=== PATIENT | female | born 1940 | race Caucasian/White ===

== ENCOUNTER 2021-01-05 01:54 | Outpatient (CLI) | payer MEDICARE, BC, SELFPAY ==
--- NOTE | 2021-01-05 06:30 | DI.US_ITS ---
EXAM: US HERNIA CLINICAL HISTORY: worsening pain/bulge lower abd,HERNIA,K46.9. TECHNIQUE: Ultrasound was performed using standard protocol. COMPARISON: No exams were available for comparison FINDINGS: Sonographic assessment utilizing grayscale and color Doppler imaging was performed and targeted to th e area of clinical concern. No abdominal wall hernia, fluid collection or mass is identified. IMPRESSION: Abdominal wall hernia is not visualized on this examination. DATA REPOSITORY:
== END 2021-01-05 02:14 ==
PROVIDERS: PCP Family Medicine; Visit Provider Family Medicine
DX: R10.32 Left lower quadrant pain (principal); R19.04 Left lower quadrant abdominal swelling, mass and lump
CPT/HCPCS: 76857

== ENCOUNTER 2021-03-26 11:12 | Outpatient (CLI) | payer MEDICARE, BC, SELFPAY ==
--- NOTE | 2021-03-26 14:18 | DI.RAD_ITS ---
Exam(s) XR HEEL RT OS CALCIS EXAM: XR HEEL RT OS CALCIS CLINICAL HISTORY: foot pain, M79.671. TECHNIQUE: 2D digital imaging was performed. COMPARISON: CR XR FOOT RT COMPLETE from 03/26/2021 FINDINGS: Two dedicated views of the calcaneus including a lateral view and a Tanner axial view reveal no eviden ce of calcaneus fracture nor obvious evidence of osteomyelitis. There is no radiopaque foreign body. No obvious osseous tarsal coalition. Incidentally noted is vascular calcification in the posterior tibial artery which extends into the plantar arteries distal to the medial malleolus. IMPRESSION: DATA REPOSITORY: RADIATION DOSE DELIVERED:
--- NOTE | 2021-03-26 14:18 | DI.RAD_ITS ---
Exam(s) XR FOOT RT COMPLETE EXAM: XR FOOT RT COMPLETE CLINICAL HISTORY: Rt foot pain, M79.671. TECHNIQUE: 2D digital imaging was performed. COMPARISON: No exams were available for comparison FINDINGS: There is no evidence of acute fracture nor diastasis of the Lisfranc joint. There is prominent hallu x valgus noted. Mild degenerative changes in the metatarsophalangeal joint of the great toe. Calcif ication in the posterior tibial and plantar arteries noted. No osseous lesions nor erosions. No radiographic evidence of osteomyelitis. IMPRESSION: DATA REPOSITORY: RADIATION DOSE DELIVERED:
== END 2021-03-26 11:32 ==
PROVIDERS: PCP Family Medicine; Visit Provider Physician Assistant
DX: M79.671 Pain in right foot (principal); M20.11 Hallux valgus (acquired), right foot; M19.071 Primary osteoarthritis, right ankle and foot
CPT/HCPCS: 73630; 73650

== ENCOUNTER 2022-04-08 13:03 | Outpatient (CLI) | payer MEDICARE, BC, SELFPAY ==
[2022-04-08 13:54] LABS: Anion Gap 10.4 mmol/L (3-11); BUN 17 mg/dL (7-18); CO2 25.6 mmol/L (21.0-32.0); CREATININE 1.1 mg/dL (0.55-1.02); Calcium 8.3 mg/dL (8.5-10.1); Calculated LDL 99 mg/dL (<100); Chloride 104 mmol/L (98-107); Cholesterol 175 mg/dL (<200); Estimated GFR 47.43 (mL/min/1.73m2); Glucose 94 mg/dL (74-106); HDL Cholesterol 64 mg/dL (40-60); Potassium 4.9 mmol/L (3.5-5.1); Sodium 140 mmol/L (136-145); Triglyceride 60 mg/dL (<150)
== END 2022-04-08 13:04 | disposition home or self-care (01) ==
LOC: LBO 13:35
PROVIDERS: PCP Family Medicine; Visit Provider Family Medicine
DX: E78.5 Hyperlipidemia, unspecified (principal); E87.1 Hypo-osmolality and hyponatremia
CPT/HCPCS: 36415; 80048; 80061

== ENCOUNTER → 2022-04-21 15:59 | Outpatient (CLI) | payer MEDICARE, BC, SELFPAY ==
--- NOTE | 2022-04-21 16:35 | DI.RAD_ITS ---
Exam(s) XR LUMBAR SPINE COMPLETE EXAM: XR LUMBAR SPINE COMPLETE CLINICAL HISTORY: chronic back pain, idiopathic scoliosis-M41.20, osteoporosis-M81.0. TECHNIQUE: 2D digital imaging was performed of the lumbar spine. Five images were obtained. AP, la teral, right oblique, left oblique and L5-S1 spot views were obtained. COMPARISON: No exams were available for comparison FINDINGS: BONES: No fracture or destructive lesion. There are endplate osteophytes throughout the lumbar spine. Facet arthropathy is seen from L4-5 through L5-S1. The bones are osteopenic. The patient has a rig ht total hip replacement. DISKS: Multilevel disc space narrowing is present. ALIGNMENT: There is a right convex lumbar scoliosis. No spondylolysis or spondylolisthesis. SOFT TISSUE: Normal. IMPRESSION: Moderate degenerative changes in the lumbar spine. Right convex thoracolumbar scoliosis. DATA REPOSITORY: RADIATION DOSE DELIVERED:
== END ==
PROVIDERS: PCP Family Medicine; Visit Provider Family Medicine
DX: M47.816 Spondylosis without myelopathy or radiculopathy, lumbar region (principal); M41.25 Other idiopathic scoliosis, thoracolumbar region; M81.0 Age-related osteoporosis without current pathological fracture
CPT/HCPCS: 72110

== ENCOUNTER → 2022-06-09 20:07 | Outpatient (CLI) | payer MEDICARE, BC, SELFPAY ==
--- NOTE | 2022-06-09 14:15 | DI.RAD_ITS ---
Exam(s) XR SACRUM COCCYX EXAM: XR SACRUM COCCYX CLINICAL HISTORY: FALL WITH INJURY--W19.XXXA, SACROCOCCYGEAL DISORDERS--M53.3 TECHNIQUE: COMPARISON: No exams were available for comparison FINDINGS: Three views were obtained. This sacrum is partially obscured by overlying dense fecal material. No gross fracture identified. IMPRESSION: RADIATION DOSE DELIVERED: Total DLP
== END ==
PROVIDERS: PCP Family Medicine; Visit Provider Nurse Practitioner Family
DX: M53.3 Sacrococcygeal disorders, not elsewhere classified (principal); W19.XXXA Unspecified fall, initial encounter
CPT/HCPCS: 72220

== ENCOUNTER 2023-04-14 01:13 | Outpatient (CLI) | payer MEDICARE, BC, SELFPAY ==
[2023-04-14 13:02] LABS: CREATININE 1.1 mg/dL (0.55-1.02); Estimated GFR 49.55 (mL/min/1.73m2); Potassium 4.5 mmol/L (3.5-5.1)
[2023-04-15 11:15] LABS: Hepatitis C Ab w Rflx HCV PCR Negative (Negative)
[2023-04-15 11:19] LABS: Hep B Core Antibody Negative (Negative)
== END 2023-04-14 01:14 | disposition home or self-care (01) ==
LOC: LOS 01:13
PROVIDERS: PCP Family Medicine; Visit Provider Family Medicine
DX: I10 Essential (primary) hypertension (principal); Z11.59 Encounter for screening for other viral diseases
CPT/HCPCS: 36415; 86704; 86803; 82565; 84132

== ENCOUNTER 2023-07-27 18:51 | Emergency (ER) | payer MEDICARE, BC, SELFPAY ==
[2023-07-27] VITALS (37 sets, daily range): BP systolic 101–185; BP diastolic 49–126; PULSE 59–79; RESP 12–27; TEMP 37.9; O2SAT 92–97
--- NOTE | 2023-07-27 19:15 | RT.EKG_ITS ---
APPROVED REPORT Exam: Resting ECG Reason for Exam: short of breath Patient Location: E HR:70 bpm ECG Measurements Heart Rate 70 AXIS WV 160 P 64 QRSd 133 QRS -56 QT 440 T 74 QTc 474 Conclusion Sinus rhythm...normal P axis, V-rate 60- 99 Probable left atrial enlargement...P >50mS, <-0.10mV V1 Left bundle branch block...QRSd>120, broad/notched R Normal sinus rhythm at a rate of 70 with left bundle branch block. Not meeting Sgarbossa criteria. Not meeting modified Bowles criteria for ischemia.no prior for comparison. No acute injury pattern.
--- NOTE | 2023-07-27 19:15 | DI.RAD_ITS ---
Exam(s) XR PORTABLE CHEST AP EXAM: XR PORTABLE CHEST AP CLINICAL HISTORY: cough, weakness, covid. TECHNIQUE: 2D digital imaging was performed. COMPARISON: CR CHEST 2 VIEWS PA,LAT from 11/18/2012 CR XR LUMBAR SPINE COMPLETE from 04/21/2022 FINDINGS: Single AP portable view. Heart size is upper normal. The mediastinum is not widened. There is a round nodular density in the left lung base region-left lower lobe. This measures approxi mately 5 cm. Was not previously present 2012. Right shoulder prosthesis. IMPRESSION: 5 cm round density in the left lower lobe which was not evident in 2013. Cannot assume that this is tenting of the diaphragm.Follow-up CT scan recommended. First read by [facility]. Report called by myself to ER physician 07/28/2023 at 8 34 am DATA REPOSITORY: RADIATION DOSE DELIVERED:
[2023-07-27] MEDS: Lactated Ringers 1,000 ML 200 ML IV (19:55)
[2023-07-27 20:23] LABS: Abs Immature Grans 0.01 10^3/uL (0.0-0.06); Absolute Basophil Count 0.04 10^3/uL (0.0-0.2); Absolute Eosinophil Count 0.02 10^3/uL (0.0-0.7); Absolute Monocyte Count 0.54 10^3/uL (0.1-0.8); Basophils % 0.9; Eosinophils % 0.4; HCT 37.5 % (36.0-46.0); HGB 12.1 g/dL (11.2-15.7); Immature Grans % 0.2; MCH 29.4 pg (27.0-33.0); MCHC 32.3 % (32.0-36.0); MCV 91 fL (80-95); MPV 10.7 fL (8.0-11.0); Neutrophils % 66.5; Platelet Count 230 10^3/uL (130-400); RBC 4.11 10^6/uL (3.93-5.22); RDW 13.4 % (11.7-14.6); WBC 4.51 10^3/uL (4.4-10.8)
--- NOTE | 2023-07-27 20:34 | W.ED.GENAD ---
Discharge Plan Disposition Patient Disposition: Home Discharge Details Clinical Impression: COVID-19 Primary Care Provider: Shayan Lee ED Provider: [place] Marina Home Meds and New Rx's Prescriptions: New prednisone 20 mg tablet 40 mg PO ONCE Qty: 9 0RF Continued calcium [calcium citrate] PO simvastatin 10 mg tablet 10 mg PO HS Qty: 90 4RF Rx Instructions: 1 PILL HS [id number] oil-D3 560 mg-1,680 mg -1,000 unit/5mL liquid PO albuterol sulfate [ProAir HFA] 90 mcg/actuation HFA aerosol inhaler 2 puff Inhalation Q6H PRN Qty: 1 4RF ondansetron 4 mg tablet,disintegrating 4 mg PO Q8H PRN (Reason: nausea and vomiting) Qty: 20 0RF oxycodone 30 mg tablet 30 mg PO Q3H PRN (Reason: pain) Rx Instructions: per pain clinic - 10 tablets daily. epinephrine 0.3 mg/0.3 mL auto-injector 0.3 mg IM DIRECTED Qty: 2 0RF amoxicillin 500 mg capsule 2,000 mg PO DIRECTED Qty: 4 2RF Rx Instructions: 4 TAB 1 HR BEFORE DENTAL WORK. lisinopril 5 mg tablet 7.5 mg PO DAILY Qty: 90 4RF Rx Instructions: dose increase 06/29/23 multivitamin [Daily Multi-Vitamin] 1 EACH tablet 1 ea PO DAILY Rx Instructions: USANA coenzyme Q10 [CoQ-10] 100 MG capsule 200 mg PO DAILY sennosides-docusate sodium [Senna Plus] 1 EACH tablet 2 tab-cap PO BID PRN naloxone [Narcan] 4 MG spray,non-aerosol 4 mg NS as directed 1 Days Qty: 2 0RF Rx Instructions: instill 1 spray into 1 nostril for opioid overdose-may repeat once in opposite nostril if no response aspirin [Aspirin Low-Strength] 81 mg tablet,chewable 81 mg PO DAILY Rx Instructions: 2 PILLS DAILY cyclobenzaprine 10 mg tablet 10 mg PO TID PRN (Reason: muscle spasm) Qty: 30 0RF tizanidine 2 mg tablet 2 mg PO Q8H PRN (Reason: muscle spasticity) Qty: 14 0RF Discharge Instructions Instructions: Viral Syndrome (ED) Additional Instructions: Increase your fluid hydration Use your albuterol inhaler, 2 puffs every 4 hours while awake Take the prednisone as prescribed Please follow-up with your doctor tomorrow Return earlier should you have new or worsening complaints, and I enter oxygen, if it stepping down below 90% after its been on your finger for several minutes I do recommend reassessment Medical Decision Making 82-year-old female presents with Positive COVID test at home, sick partner admitted to the hospital with history of asthma Diagnostic labs do not show significant acute abnormality, chest x-ray does not show acute abnormality, patient is not hypoxic, significantly tachypneic, tachycardic and blood pressure is stable We ambulated for 2 minutes in the room and patient does not exhibit hypoxemia Patient is alert and oriented, she has no peripheral edema, cardiac rate rhythm regular, lungs clear to auscultation, no respiratory distress, laryngitis noted, appears tired but ambulates well Patient does not meet criteria for admission at this time She is unfortunately unable to swallow pills and Paxlovid and will need PVR are unable to be crushed, at this time remdesivir is not an option for the patient she does not meet any criteria for admission and she is not exhibiting signs of severe illness at this time She will need very close outpatient follow-up I will place her on prednisone after long discussion with patient and daughter, they are aware that this will not prevent pneumonia Return precautions reviewed and patient family expressed understanding, will use albuterol with spacer which will suffice in the emergency department Patient has been observed for 2 hours and has remained stable throughout this encounter HPI General Date/Time Provider Initiated Documentation: 07/27/23 18:58. HPI Narrative: This 82-year-old female presents with report of testing positive for COVID yesterday. reportedly sick with COVID. States she is short of breath having cough, fever, and body aches. Denies any urinary symptoms. Related Data Home Medications Medication Instructions Recorded Confirmed coenzyme Q10 100 mg capsule 200 mg PO DAILY 01/26/13 06/29/23 (CoQ-10) multivitamin (Daily Multi-Vitamin 1 ea PO DAILY 01/26/13 06/29/23 tablet) sennosides 8.6 mg-docusate sodium 2 tab-cap PO BID PRN 06/19/15 06/29/23 50 mg tablet (Senna Plus) naloxone 4 mg/actuation nasal 4 mg NS as directed 1 day #2 sprays 05/01/18 06/29/23 spray (Narcan) aspirin 81 mg chewable tablet 81 mg PO DAILY 08/31/19 06/29/23 (Aspirin Low-Strength) [id number] 560 mg-epa 1,680 ml PO 01/02/21 06/29/23 mg-fish oil-D3 1,000 unit/5 mL oral liq albuterol sulfate 90 mcg/actuation 2 puff inhalation Q6H PRN ##1 09/02/21 06/29/23 aerosol inhaler (ProAir HFA) ondansetron 4 mg disintegrating 4 mg PO Q8H PRN nausea and 09/02/21 06/29/23 tablet vomiting #20 tabs calcium [calcium citrate] PO 03/22/22 06/29/23 oxycodone 30 mg tablet 30 mg PO Q3H PRN pain 04/21/22 06/29/23 simvastatin 10 mg tablet 10 mg PO HS #90 tab-caps 08/24/22 06/29/23 epinephrine 0.3 mg/0.3 mL 0.3 mg (0.3 mL) IM DIRECTED 02/17/23 06/29/23 injection, auto-injector anaphylaxis #2 SYRGS amoxicillin 500 mg capsule 2,000 mg PO DIRECTED #4 tab-caps 02/18/23 06/29/23 cyclobenzaprine 10 mg tablet 10 mg PO TID PRN muscle spasm #30 06/28/23 06/29/23 tabs lisinopril 5 mg tablet 7.5 mg PO DAILY #90 tab-caps 06/29/23 06/29/23 tizanidine 2 mg tablet 2 mg PO Q8H PRN muscle spasticity 07/21/23 #14 tabs prednisone 20 mg tablet 40 mg PO ONCE #9 tabs 07/27/23 Previous Rx's Medication Instructions Recorded naloxone 4 mg/actuation nasal 4 mg NS as directed 1 day #2 sprays 05/01/18 spray (Narcan) albuterol sulfate 90 mcg/actuation 2 puff inhalation Q6H PRN ##1 09/02/21 aerosol inhaler (ProAir HFA) ondansetron 4 mg disintegrating 4 mg PO Q8H PRN nausea and 09/02/21 tablet vomiting #20 tabs simvastatin 10 mg tablet 10 mg PO HS #90 tab-caps 08/24/22 epinephrine 0.3 mg/0.3 mL 0.3 mg (0.3 mL) IM DIRECTED 02/17/23 injection, auto-injector anaphylaxis #2 SYRGS amoxicillin 500 mg capsule 2,000 mg PO DIRECTED #4 tab-caps 02/18/23 cyclobenzaprine 10 mg tablet 10 mg PO TID PRN muscle spasm #30 06/28/23 tabs lisinopril 5 mg tablet 7.5 mg PO DAILY #90 tab-caps 06/29/23 tizanidine 2 mg tablet 2 mg PO Q8H PRN muscle spasticity 07/21/23 #14 tabs prednisone 20 mg tablet 40 mg PO ONCE #9 tabs 07/27/23 Allergies Allergy/AdvReac Type Severity Reaction Status Date / Time acetaminophen [From Tylenol] Allergy Intermediate Verified 06/20/23 15:14 meperidine Allergy Unknown ANAPHYLAXIS Verified 06/20/23 15:14 atorvastatin AdvReac Unknown MYALGIAS Verified 06/20/23 15:14 Sulfa (Sulfonamide AdvReac Unknown NAUSEA Verified 06/20/23 15:14 Antibiotics) black flies Allergy Intermediate anaphylaxis Uncoded 06/20/23 15:14 to black fly bites SHRIMP Allergy Unknown Skin Rash Uncoded 06/20/23 15:14 General Stated Complaint: SOB LYNNE: 3 PFSH All Active Problems (Updated 07/27/23 @ 22:10 by REGGIE Argueta) COVID-19 (Acute) Left flank pain (Acute) Screening for viral disease (Acute) Coccyx pain (Acute) Bilateral leg edema (Acute) Nausea (Acute) Scoliosis (and kyphoscoliosis), idiopathic (Acute) Ingrown left big toenail (Acute) Impacted cerumen, bilateral (Acute) Hernia (Chronic) Bochdalek hernia (Acute) Abnormal liver enzymes (Acute 08/11/15) Allergic rhinitis (Acute) Bilateral impacted cerumen (Acute 09/04/15) Injury of scapular region (Acute) Status post hip replacement (Acute) Status post total abdominal hysterectomy and bilateral salpingo-oophorectomy (Acute 02/28/15) Status post wrist surgery (Acute) Right shoulder pain (Acute 05/23/14) 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 Osteoarthritis (Acute) DJD right hip ([id number] [facility] and revision) Idiopathic scoliosis (Acute) chronic back pain, narcotic use, followed at [facility] 03/06/15; narcotic contract Hyperlipidemia (Acute) Hearing loss, conductive, external ear (Acute 10/25/13) Essential hypertension (Acute 08/28/13) Chronic pain syndrome (Acute 10/14/15) Bilateral edema of lower extremity (Acute 08/15/15) ASCVD (arteriosclerotic cardiovascular disease) (Acute) 04/05 stent to LAD Medical History arthritis Facet joint disease scoliosis Surgical History Abdominal hysterectomy Bilateral salpingectomy with oophorectomy H/O foot surgery H/O toe surgery 07/29/2021 left wr SHOULDER REPLACEMENT 11/13/14~ TOTAL REVERSE Stent placement LAD Total replacement of hip (~2006) RIGHT wrist surgery right wrist surgery- left Family History Mother Neoplasm BREAST Asthma Father Essential hypertension Heart disease Stroke Grandfather No problems noted. Grandfather Heart disease Stroke Grandmother Neoplasm BREAST Grandmother Heart disease Son No problems noted. Daughter Asthma Social History Smoking/Tobacco Use Status: Never Smoking risk assessment performed?: Yes Alcohol Intake: current Alcohol Intake frequency: 0-2 drinks per day Drug use: Never Substance use type: does not use Household members: spouse current occupation: RN Frequency: 1-2 times per week Shira/Presybeterian: Sikh Special shira needs: No Course Vital Signs Vital signs: Vital Signs Temperature 37.9 C H 07/27/23 19:03 Pulse 79 07/27/23 19:03 Respiratory Rate 20 07/27/23 19:03 Blood Pressure 185/63 H 07/27/23 19:03 Pulse Oximetry 95 07/27/23 19:03 Temperature 37.9 C H 07/27/23 19:03 Temperature Source Oral 07/27/23 19:03 Pulse 74 07/27/23 20:02 Pulse 72 07/27/23 20:02 Respiratory Rate 18 07/27/23 20:02 Respiratory Effort Normal 07/27/23 19:08 Respiratory Depth Normal 07/27/23 19:08 Respiratory Pattern Normal 07/27/23 19:08 Blood Pressure 101/49 L 07/27/23 20:02 Blood Pressure Mean 57 07/27/23 20:02 Blood Pressure Position Sitting 07/27/23 19:03 Pulse Oximetry 94 07/27/23 20:02 Oxygen Delivery Method Room Air 07/27/23 19:03 Oxygen Flow Rate 0 07/27/23 19:03 Pain Level 8 07/27/23 19:03 Lab/Test Results Lab/Test Results: 07/27/23 19:40 Blood Blood Culture - Pending 07/27/23 19:30 Blood Blood Culture - Pending Laboratory Tests Range/Units 07/27/23 07/27/23 19:30 19:30 WBC (4.4-10.8) 10^3/uL 4.51 RBC (3.93-5.22) 10^6/uL 4.11 Hgb (11.2-15.7) g/dL 12.1 Hct (36.0-46.0) % 37.5 MCV (80-95) fL 91 MCH (27.0-33.0) pg 29.4 MCHC (32.0-36.0) % 32.3 RDW (11.7-14.6) % 13.4 Plt Count (130-400) 10^3/uL 230 MPV (8.0-11.0) fL 10.7 Immature Gran % 0.2 Neutrophils % 66.5 Lymphocytes % 20.0 Monocytes % 12.0 Eosinophils % 0.4 Basophils % 0.9 Nucleated RBC % (0.0-0.3) % 0.0 Absolute Neutrophils (1.2-6.7) 10^3/uL 3.00 Absolute Lymphocytes (1.2-3.4) 10^3/uL 0.90 L Absolute Monocytes (0.1-0.8) 10^3/uL 0.54 Absolute Eosinophils (0.0-0.7) 10^3/uL 0.02 Absolute Basophils (0.0-0.2) 10^3/uL 0.04 VBG Lactate (0.6-1.4) mmol/L 1.0 PAWSS Have you Been Recently Intoxicated or Drunk Within the Last 30 days?: No Have you Ever Experienced Previous Episodes of Alcohol Withdrawal?: No Have you ever Experienced Withdrawal Seizures?: No Have you ever Experienced Delirium Tremens(DT)s?: No Have you ever undergone Alcohol Rehabilitation Treatment (i.e, inpt ot outpatient treatment programs)?: No Have you ever Experienced Blackouts?: No Have you ever Combined Alcohol with other Downers within the last 90 days?: No Have you ever Combined Alcohol with any other Substance of Abuse during the last 90 days?: No Positive Blood Alcohol level on Presentation? [PCS.BAL]: No Evidence of Increased Autonomic Activity (i.e. HR>120, tremor, sweating, agitation, nausea)?: No Result: 0
[2023-07-27 20:45] LABS: ALT 38 U/L (14-59); AST 33 U/L (15-37); Albumin 3.7 g/dL (3.4-5.0); Alkaline Phosphatase 85 U/L (46-116); Anion Gap 7.3 mmol/L (3-11); BUN 18 mg/dL (7-18); Bilirubin, Total 0.3 mg/dL (0.2-1.0); CO2 28.7 mmol/L (21.0-32.0); CREATININE 1.2 mg/dL (0.55-1.02); Calcium 8.9 mg/dL (8.5-10.1); Chloride 99 mmol/L (98-107); Estimated GFR 44.64 (mL/min/1.73m2); Glucose 107 mg/dL (74-106); Lipase 43 U/L (16-77); Potassium 4.5 mmol/L (3.5-5.1); Sodium 135 mmol/L (136-145); Total Protein 7.3 g/dL (6.4-8.2); Troponin I < 50 ng/L (<or=60)
[2023-07-27 20:49] LABS: Troponin I < 50 ng/L (<or=60)
[2023-07-27 21:01] LABS: Influenza A PCR Negative (Negative); Influenza B PCR Negative (Negative); RSV PCR Negative (Negative)
[2023-07-27 21:06] LABS: COVID-19 PCR Positive (Negative)
--- NOTE | 2023-07-27 21:46 | NUR.NOTE ---
PT was road tested in room by walking in place for 2 min. PT SPO2% did not decrease during that time. PT maintained a 96% SPO2%Nursing Note:
--- NOTE | 2023-07-27 21:48 | DI.VRAD_ITS ---
PROCEDURE INFORMATION: Exam: XR Chest Exam date and time: 07/27/2023 9:04 PM Age: 82 years old Clinical indication: Other: Cough, weakness, covid TECHNIQUE: Imaging protocol: Radiologic exam of the chest. Views: 1 view. COMPARISON: No relevant prior studies available. FINDINGS: Lungs: No focal pulmonary consolidation is seen. Pleural spaces: No pleural effusion or pneumothorax is demonstrated. Heart/Mediastinum: Heart size is normal. Bones/joints: There is a shoulder arthroplasty prosthesis on the right. There is severe degenerative change at the left shoulder joint. There is S-shaped spinal curvature. IMPRESSION: No active disease is seen in the chest. Dictated and Authenticated by: Matthias Negron MD. Ordering:CHRIS Bean MD
[2023-07-27 22:04] LABS: Bilirubin Negative (Negative); Blood Negative (Negative); Clarity Clear (Clear); Glucose Negative (Negative); Ketones Trace mg/dL (Negative); Leukocyte Esterase Negative (Negative); Nitrite Negative (Negative); Specific Gravity 1.015 (1.005-1.025); Urobilinogen 0.2 mg/dL (Up to 0.2)
[2023-07-27] MEDS: predniSONE 20 MG TAB 40 MG PO (22:31)
--- NOTE | 2023-07-28 08:55 | NUR.NOTE ---
Accessed Pts chart to locate who Primary Care Provider is. Reporting per Dr Parker to Radha (nurse at [facility]) CT scan shows 5 cm mass of left lower lobe of lung on Chest Xray. Follow up CT is recommended
--- NOTE | 2023-07-28 09:12 | W.ED.FU ---
Date of service: 07/28/23 Time of Service: 08:40 Follow Up Plan: Notifed by Dr. Shipley radiology that overread of last night's VRAD read on CXR includes new 5cm LLL mass, followup CT recommended. Attempted to contact patient without success. Findings relayed to staff at Dr. Lee's (pt's PCP) office.
== END 2023-07-27 23:03 | disposition home or self-care (01) ==
PROVIDERS: Emergency Provider Physician Assistant; PCP Family Medicine
DX: R06.02 Shortness of breath (principal); U07.1 COVID-19; R05.9 Cough, unspecified; R53.1 Weakness; I10 Essential (primary) hypertension; Z79.899 Other long term (current) drug therapy
CPT/HCPCS: 80053; 83690; 87040; 87637; 93005; 96361; 96374; 99285; 71045; 81003; 83605; 84484; 85025; 93010; J0131; J7512

== ENCOUNTER → 2023-08-04 02:57 | Outpatient (CLI) | payer MEDICARE, BC, SELFPAY ==
--- NOTE | 2023-08-04 09:00 | DI.CT_ITS ---
Exam(s) CT CHEST WO EXAM: CT CHEST WO CLINICAL HISTORY: LLL lesion, LUNG NODULE, R91.1. TECHNIQUE: Multi planar reconstructions were performed. CONTRAST MATERIAL: None COMPARISON: CR,XR XR PORTABLE CHEST AP from 07/27/2023 FINDINGS: CHEST: LUNGS: There is a Bochdalek hernia of the posterior left hemidiaphragm with upward herniation of uppe r abdominal fat into the chest cavity, this benign finding accounting for the 5 cm mass seen on the r ecent chest x-ray. On CT this fat containing hernia measures 4 cm wide by 2 cm craniocaudal by 4 cm AP. The upper 2 cm of the left kidney is also above the left hemidiaphragm. There is no actual neop lastic appearing lung lesion at this level nor elsewhere in either lung field. No infiltrates nor pl eural effusions. No focal findings in trachea and mainstem bronchi. MEDIASTINUM: There is no obvious hilar nor mediastinal adenopathy. Visualized thyroid unremarkable.No obvious axillary adenopathy CARDIAC: Heart size is normal. There is no pericardial effusion.Caliber of the thoracic aorta is wit hin normal limits. VISUALIZED UPPER ABDOMEN:No significant adrenal masses. Spleen size is normal and the spleen is not herniated into the chest cavity. OSSEOUS: No significant osseous lesions.Right shoulder reverse prosthesis noted. IMPRESSION: 1. There is no ominous pulmonary mass. The left-sided finding on the recent chest x-ray is accounted for by upward herniation of abdominal fat and the upper 2 cm of the left kidney into the chest throu gh a hernia in the posterior aspect of the left veto diaphragm. 2. No infiltrates nor pleural effusions nor intrathoracic adenopathy. 3. Right shoulder reverse prosthesis noted. Wet read. RADIATION DOSE DELIVERED: 283.88mGy.cm Total DLP DATA REPOSITORY: All CT scans at this facility are submitted to the National Radiology Data Registry (NRDR) Dose Index Registry (DIR) with the [employer] (A[employer]). RADIATION OPTIMIZATION: All CT scans at this facility use at least one of these dose optimization te chniques: automated exposure control; mA and/or kV adjustment per patient size (includes targeted exa ms where dose is matched to clinical indication); or iterative reconstruction.
== END ==
PROVIDERS: PCP Family Medicine; Visit Provider Family Medicine
DX: R91.1 Solitary pulmonary nodule (principal)
CPT/HCPCS: 71250

== ENCOUNTER 2024-02-27 13:08 | Emergency (ER) | payer MEDICARE, BC, SELFPAY ==
[2024-02-27 13:40] VITALS: BP 144/53; PULSE 97; RESP 18; TEMP 38.3; O2SAT 92
[2024-02-27 14:41] VITALS: BP 144/53; PULSE 97; RESP 18; TEMP 38.3; O2SAT 92
--- NOTE | 2024-02-27 15:07 | ED.GENADUL_ITS ---
Discharge Plan Disposition Patient Disposition: Home Condition: Stable Discharge Details Clinical Impression: Pneumonia Primary Care Provider: Shayan Lee ED Provider: Miko Florence Home Meds and New Rx's Prescriptions: New amoxicillin-pot clavulanate 875-125 mg tablet 1 tab PO BID 5 Days Qty: 10 0RF azithromycin 250 mg tablet 250 mg PO DAILY 4 Days Qty: 4 0RF Rx Instructions: start on day 2 of therapy No Action calcium [calcium citrate] 1 tab PO PRN lisinopril 10 mg tablet 10 mg PO DAILY Qty: 90 3RF Rx Instructions: dose increase 06/29/23 oxycodone 30 mg tablet 30 mg PO Q3H PRN (Reason: pain) Rx Instructions: per pain clinic - 10 tablets daily. epinephrine 0.3 mg/0.3 mL auto-injector 0.3 mg IM DIRECTED Qty: 2 0RF amoxicillin 500 mg capsule 2,000 mg PO DIRECTED Qty: 4 2RF Rx Instructions: 4 TAB 1 HR BEFORE DENTAL WORK. ondansetron 4 mg tablet,disintegrating 4 mg PO Q8H PRN (Reason: nausea and vomiting) Qty: 20 1RF multivitamin [Daily Multi-Vitamin] 1 EACH tablet 1 ea PO DAILY Rx Instructions: [facility] coenzyme Q10 [CoQ-10] 100 MG capsule 200 mg PO DAILY sennosides-docusate sodium [Senna Plus] 1 EACH tablet 2 tab-cap PO BID PRN naloxone [Narcan] 4 MG spray,non-aerosol 4 mg NS as directed 1 Days Qty: 2 0RF Rx Instructions: instill 1 spray into 1 nostril for opioid overdose-may repeat once in opposite nostril if no response aspirin [Aspirin Low-Strength] 81 mg tablet,chewable 81 mg PO DAILY Rx Instructions: 2 PILLS DAILY albuterol sulfate [ProAir HFA] 90 mcg/actuation HFA aerosol inhaler 2 puff Inhalation Q6H PRN Qty: 1 4RF simvastatin 10 mg tablet 10 mg PO HS Qty: 90 4RF Rx Instructions: 1 PILL HS hydrochlorothiazide 12.5 mg tablet 12.5 mg PO DAILY Qty: 90 3RF Discharge Instructions Instructions: Pneumonia (ED) Additional Instructions: Please follow-up with your primary care physician. Please return to the emergency department for any worsening symptoms HPI General Date/Time Provider Initiated Documentation: 02/27/24 14:42 . HPI Narrative: 83-year-old female presents with fatigue cough and fever over the last couple days of note her son had a recent illness. Related Data Home Medications Medication Instructions Recorded Confirmed coenzyme Q10 100 mg capsule 200 mg PO DAILY 01/26/13 02/27/24 (CoQ-10) multivitamin (Daily Multi-Vitamin 1 ea PO DAILY 01/26/13 02/27/24 tablet) sennosides 8.6 mg-docusate sodium 2 tab-cap PO BID PRN 06/19/15 02/27/24 50 mg tablet (Senna Plus) naloxone 4 mg/actuation nasal 4 mg NS as directed 1 day #2 sprays 05/01/18 02/27/24 spray (Narcan) aspirin 81 mg chewable tablet 81 mg PO DAILY 08/31/19 02/27/24 (Aspirin Low-Strength) calcium 1 tab PO PRN 03/22/22 02/27/24 oxycodone 30 mg tablet 30 mg PO Q3H PRN pain 04/21/22 02/27/24 epinephrine 0.3 mg/0.3 mL 0.3 mg (0.3 mL) IM DIRECTED 02/17/23 02/27/24 injection, auto-injector anaphylaxis #2 SYRGS amoxicillin 500 mg capsule 2,000 mg (4 x 500 mg) PO 02/18/23 02/27/24 DIRECTED #4 tab-caps albuterol sulfate 90 mcg/actuation 2 puff inhalation Q6H PRN ##1 07/28/23 02/27/24 aerosol inhaler (ProAir HFA) ondansetron 4 mg disintegrating 4 mg PO Q8H PRN nausea and 08/04/23 02/27/24 tablet vomiting #20 tabs simvastatin 10 mg tablet 10 mg PO HS #90 tab-caps 11/12/23 02/27/24 lisinopril 10 mg tablet 10 mg PO DAILY #90 tab-caps 11/15/23 02/27/24 hydrochlorothiazide 12.5 mg tablet 12.5 mg PO DAILY #90 tabs 11/29/23 02/27/24 amoxicillin 875 mg-potassium 1 tab PO BID 5 days #10 tabs 02/27/24 clavulanate 125 mg tablet azithromycin 250 mg tablet 250 mg PO DAILY 4 days #4 tabs 02/27/24 Previous Rx's Medication Instructions Recorded naloxone 4 mg/actuation nasal 4 mg NS as directed 1 day #2 sprays 05/01/18 spray (Narcan) epinephrine 0.3 mg/0.3 mL 0.3 mg (0.3 mL) IM DIRECTED 02/17/23 injection, auto-injector anaphylaxis #2 SYRGS amoxicillin 500 mg capsule 2,000 mg (4 x 500 mg) PO 02/18/23 DIRECTED #4 tab-caps albuterol sulfate 90 mcg/actuation 2 puff inhalation Q6H PRN ##1 07/28/23 aerosol inhaler (ProAir HFA) ondansetron 4 mg disintegrating 4 mg PO Q8H PRN nausea and 08/04/23 tablet vomiting #20 tabs simvastatin 10 mg tablet 10 mg PO HS #90 tab-caps 11/12/23 lisinopril 10 mg tablet 10 mg PO DAILY #90 tab-caps 11/15/23 hydrochlorothiazide 12.5 mg tablet 12.5 mg PO DAILY #90 tabs 11/29/23 amoxicillin 875 mg-potassium 1 tab PO BID 5 days #10 tabs 02/27/24 clavulanate 125 mg tablet azithromycin 250 mg tablet 250 mg PO DAILY 4 days #4 tabs 02/27/24 Allergies Allergy/AdvReac Type Severity Reaction Status Date / Time acetaminophen [From Tylenol] Allergy Intermediate LFT's Verified 02/27/24 13:37 meperidine Allergy Unknown ANAPHYLAXIS Verified 02/27/24 13:37 atorvastatin AdvReac Unknown MYALGIAS Verified 02/27/24 13:37 Sulfa (Sulfonamide AdvReac Unknown NAUSEA Verified 02/27/24 13:37 Antibiotics) black flies Allergy Intermediate anaphylaxis Uncoded 02/27/24 13:37 to black fly bites SHRIMP Allergy Unknown Skin Rash Uncoded 02/27/24 13:37 General Stated Complaint: RespSymp LYNNE: 3 Review of Systems Narrative: Review of Systems Constitutional: negative Eyes: negative ENT: negative Cardiovascular: negative Respiratory: Cough Gastrointestinal: negative : negative Musculoskeletal: negative Skin: negative Neurologic: negative Psych: negative Exam Narrative Exam Narrative: Physical Examination General: alert, awake, cooperative, resting comfortably, no acute distress HEENT: normocephalic, atraumatic; PERRL, EOM intact, conjunctiva normal; no nasal discharge; moist mucous membranes, oral and pharyngeal mucosa normal, tolerating secretions Neck: supple, trachea midline; full ROM Chest: normal to inspection Respiratory: normal respiratory effort, speaking in full sentences, clear to auscultation, no wheezing, rales or rhonchi Cardiac: regular rate, regular rhythm, S1S2 intact, no murmurs rubs or gallops GI: abdomen soft, non-tender, non-distended; no palpable mass or hepatosplenomegaly Skin: no lesions, rashes or trauma appreciated Neuro: AAOx3, normal speech, moving all extremities Extremities: No peripheral edema Psych: Appropriate mood and affect Course Vital Signs Vital signs: Vital Signs Temperature 38.3 C H 02/27/24 13:40 Pulse 97 H 02/27/24 13:40 Respiratory Rate 18 02/27/24 13:40 Blood Pressure 144/53 H 02/27/24 13:40 Pulse Oximetry 92 02/27/24 13:40 Temperature 38.3 C H 02/27/24 14:41 Temperature Source Temporal Artery Scan 02/27/24 14:41 Pulse 97 H 02/27/24 14:41 Respiratory Rate 18 02/27/24 14:41 Respiratory Effort Normal 02/27/24 14:41 Respiratory Depth Normal 02/27/24 14:41 Blood Pressure 144/53 H 02/27/24 14:41 Blood Pressure Position Sitting 02/27/24 14:41 Pulse Oximetry 92 02/27/24 14:41 Oxygen Delivery Method Room Air 02/27/24 14:41 Oxygen Flow Rate 0 02/27/24 13:40 Pain Level 5 02/27/24 14:41 Comment took PRN oxycodone 02/27/24 13:40 Medical Decision Making 83-year-old female presents with cough fever and fatigue over the last couple of days, of note son had recent illness upper respiratory illness, lungs clear on examination, speaking full sentences nonhypoxic. Will obtain basic labs chest x-ray, patient's cardiology team has sent a request for blood test that they were going to perform later in the week; trial of dexamethasone, nebs close reassessment. Consider pneumonia versus viral URI low suspicion for CHF ACS or PE. 16: 27 resting comfortably no acute distress. Evidence of pneumonia on x-ray. Will start empiric antibiotics. Home care instructions and return precautions given Quality:[facility] Health Related Social Needs: No Data to Display PFSH All Active Problems (Updated 02/27/24 @ 16:27 by Miko Florence MD) Pneumonia (Acute) Viral URI (Acute) CAD (coronary artery disease) (Chronic) Care plan discussed with patient (Acute) COVID-19 (Acute) Left flank pain (Acute) Screening for viral disease (Acute) Coccyx pain (Acute) Bilateral leg edema (Acute) Nausea (Acute) Scoliosis (and kyphoscoliosis), idiopathic (Acute) Ingrown left big toenail (Acute) Impacted cerumen, bilateral (Acute) Hernia (Chronic) Bochdalek hernia (Acute) Abnormal liver enzymes (Acute 08/11/15) Allergic rhinitis (Acute) Bilateral impacted cerumen (Acute 09/04/15) Injury of scapular region (Acute) Status post hip replacement (Acute) Status post total abdominal hysterectomy and bilateral salpingo-oophorectomy (Acute 02/28/15) Status post wrist surgery (Acute) Right shoulder pain (Acute 05/23/14) 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 Osteoarthritis (Acute) DJD right hip ([id number] [facility] [place] Idiopathic scoliosis (Acute) chronic back pain, narcotic use, [place] [facility] [place]; narcotic contract Hyperlipidemia (Acute) Hearing loss, conductive, external ear (Acute 10/25/13) Essential hypertension (Acute 08/28/13) Chronic pain syndrome (Acute 10/14/15) Bilateral edema of lower extremity (Acute 08/15/15) ASCVD (arteriosclerotic cardiovascular disease) (Acute) 04/05 stent to LAD Medical History scoliosis arthritis Facet joint disease Surgical History H/O foot surgery H/O toe surgery 07/29/2021 wrist surgery- left wrist surgery right left wr Total replacement of hip (~2006) RIGHT Stent placement LAD SHOULDER REPLACEMENT 11/13/14~ TOTAL REVERSE Abdominal hysterectomy Bilateral salpingectomy with oophorectomy Family History Mother Neoplasm BREAST Asthma Father Essential hypertension Heart disease Stroke Grandfather No problems noted. Grandfather Heart disease Stroke Grandmother Neoplasm BREAST Grandmother Heart disease Son No problems noted. Daughter Asthma Social History Smoking/Tobacco Use Status: Never Smoking risk assessment performed?: Yes Alcohol Intake: current Alcohol Intake frequency: 0-2 drinks per day Drug use: Never Substance use type: does not use Housing: house current occupation: RN What is your relationship status?: Panel score (0-1 are the most socially isolated patients): 0 Frequency: 1-2 times per week Shira/Baptist: Episcopal Special shira needs: No Do you feel safe at home: Yes Do you feel safe in your relationship?: Yes
[2024-02-27] MEDS: Albuterol 2.5 MG/3 ML INH SOLN VIAL UPD (15:15)
[2024-02-27] MEDS: Dexamethasone 10 MG/ML VIAL IVP (15:15)
[2024-02-27 15:48] LABS: Abs Immature Grans 0.09 10^3/uL (0.0-0.06); Absolute Basophil Count 0.04 10^3/uL (0.0-0.2); Basophils % 0.3; HCT 35.8 % (36.0-46.0); HGB 11.8 g/dL (11.2-15.7); Immature Grans % 0.6; MCH 30.7 pg (27.0-33.0); MCV 93 fL (80-95); MPV 10.2 fL (8.0-11.0); Monocytes % 2.8; Neutrophils % 91.3; Platelet Count 222 10^3/uL (130-400); RBC 3.84 10^6/uL (3.93-5.22); RDW 13.2 % (11.7-14.6); RDW-SD 45.1 fL; WBC 14.07 10^3/uL (4.4-10.8)
[2024-02-27 15:53] LABS: Absolute Monocyte Count 0.39 10^3/uL (0.1-0.8); Absolute Neutrophil Count 12.85 10^3/uL (1.2-6.7)
--- NOTE | 2024-02-27 15:55 | DI.RAD_ITS ---
Exam(s) XR CHEST 2V PA LATERAL EXAM: XR CHEST 2V PA LATERAL CLINICAL HISTORY: cough TECHNIQUE: 2D digital imaging was performed of the chest. Two images were obtained. PA and lateral views were obtained. COMPARISON: CR,XR XR PORTABLE CHEST AP from 07/27/[address] CHEST WO from 08/04/2023 FINDINGS: MEDIASTINUM: Normal. HEART: Normal. PULMONARY VASCULATURE: Normal. LUNGS: There is a question of a small infiltrate in the right lung base just above the hemidiaphragm. The left lung appears clear. PLEURAL SPACE: No pleural effusion or pneumothorax. BONE:Within normal limits for the patient's age. There is again seen a right total reverse shoulder replacement. Degenerative changes are seen in the left glenohumeral joint. OTHER FINDINGS:Normal. IMPRESSION: Question of a new small infiltrate in the right lung base. DATA REPOSITORY: RADIATION DOSE DELIVERED:
[2024-02-27 16:15] LABS: ALT 53 U/L (14-59); AST 52 U/L (15-37); Albumin 3.8 g/dL (3.4-5.0); Alkaline Phosphatase 63 U/L (46-116); Anion Gap 7.8 mmol/L (3-11); BUN 26 mg/dL (7-18); Bilirubin, Total 0.5 mg/dL (0.2-1.0); CO2 30.2 mmol/L (21.0-32.0); CREATININE 1.3 mg/dL (0.55-1.02); Calcium 8.6 mg/dL (8.5-10.1); Calculated LDL 96 mg/dL (<100); Chloride 100 mmol/L (98-107); Cholesterol 182 mg/dL (<200); Glucose 120 mg/dL (74-106); HDL Cholesterol 81 mg/dL (40-60); Potassium 4.3 mmol/L (3.5-5.1); Sodium 138 mmol/L (136-145); Total Protein 6.9 g/dL (6.4-8.2); Triglyceride 27 mg/dL (<150)
[2024-02-27] MEDS: Azithromycin 250 MG TAB 500 MG PO (16:45)
[2024-02-27] MEDS: Amoxicillin 875/Clav. 125 TAB PO (16:45)
== END 2024-02-27 16:48 | disposition home or self-care (01) ==
PROVIDERS: Emergency Provider Emergency Medicine; PCP Family Medicine
DX: J18.9 Pneumonia, unspecified organism (principal); R09.89 Other specified symptoms and signs involving the circulatory and respiratory systems; R50.9 Fever, unspecified; R05.1 Acute cough
CPT/HCPCS: 80053; 80061; 94640; 96374; 99284; 71046; 85025; 99283; J1100; J7613

== ENCOUNTER 2025-03-07 10:07 | Outpatient (CLI) | payer MEDICARE, BC, SELFPAY ==
--- NOTE | 2025-03-07 09:15 | DI.RAD_ITS ---
Exam(s) XR CERVICAL SPINE COMP 4-5V EXAM: XR CERVICAL SPINE COMP 4-5V CLINICAL HISTORY: neck pain with some radicular symptoms M54.2 CERVICALGIA. TECHNIQUE: 2D digital imaging was performed. COMPARISON: No exams were available for comparison FINDINGS: Six views No evidence of acute fracture, listhesis, nor offset of the spinal laminar line. There is significant disc space narrowing at C 4-5 and C5-6 levels; less so at the other levels. The re is multilevel facet arthropathy. No cervical ribs evident. No osseous lesions. Incidentally not ed is a right shoulder prosthesis. IMPRESSION: Multilevel chronic degenerative disc disease and facet arthropathy. DATA REPOSITORY: RADIATION DOSE DELIVERED:
== END 2025-03-07 10:27 ==
LOC: DI 10:07
PROVIDERS: PCP Family Medicine; Visit Provider Family Medicine
DX: M50.022 Cervical disc disorder at C5-C6 level with myelopathy (principal)
CPT/HCPCS: 72050

== ENCOUNTER → 2025-09-13 09:22 | Outpatient (CLI) | payer MEDICARE, BC, SELFPAY ==
--- NOTE | 2025-09-13 13:36 | DI.CT_ITS ---
Exam(s) CT THORACIC LUMBAR SPINE WO EXAM: CT THORACIC LUMBAR SPINE WO CLINICAL HISTORY: worsening back pain,scoliosis,m41.20. TECHNIQUE: Imaging Protocol: Axial, coronal and sagittal images were reconstructed utilizing bone and soft tissue algorithm. COMPARISON: CT CT CHEST WO from 08/04/2023 FINDINGS: Thoracic spine: Bones: No acute fractures are seen. No lytic or blastic lesions. Stable old mild compression fractures of T8 and T9. small endplate osteophytes. No central canal stenosis or significant neural foraminal narrowing. Pronounced levoscoliosis at the upper thoracic region and dextroscoliosis at the tho racolumbar junction. Soft tissues: The soft tissues of the chest are unremarkable. No large disk herniations are identified. Lumbar spine: Bones: No acute fracture is identified. Stable mild compression fracture of L1. Alignment: Pronounced dextroscoliosis at the thoracolumbar junction. Levoscoliosis at the lower lumbar region. Soft tissues: There is no large disc herniation. No paraspinal hematoma. Individual levels: L1-2: Severe narrowing of the left side of the disc space with prominent left- sided osteophytes projecting laterally. Facet degenerative changes also present, combining to produce severe left neural foraminal narrowing. Mild disc bulging. L2-3: Severe narrowing of the left side of the disc space with prominent endplate osteophytes. Mild disc bulging. Facet degenerative changes present greater on the left. Severe left neural foraminal narrowing. Mild central canal stenosis. L3-4: Disc space narrowing greater on the right. Osteophytes and disc bulging, greater on the right. Moderate right neural foraminal narrowing. Moderate central canal stenosis. L4-5: Loss of disc height eccentric toward the right where there are prominent endplate osteophytes projecting laterally. Mild disc bulging. Facet degenerative changes are also present, causing moderate to severe right neural foraminal narrowing. [id number] central canal stenosis. L5-S1: Loss of disc height eccentric toward the right where there are laterally projecting osteophytes. Severe facet degenerative changes are present causing severe right neural foraminal narrowing. There is mild disc bulging. IMPRESSION: Scoliosis, degenerative disc changes and facet degenerative changes combine to produce multilevel severe neural foraminal narrowing and [id number] central canal stenosis. Stable mild L1 compression fracture. RADIATION DOSE DELIVERED: Total DLP DATA REPOSITORY: All CT scans at this facility are submitted to the National Radiology Data Registry (NRDR) Dose Index Registry (DIR) with the [employer] (A[employer]). RADIATION OPTIMIZATION: All CT scans at this facility use at least one of these dose optimization techniques: automated exposure control; mA and/or kV adjustment per patient size (includes targeted exams where dose is matched to clinical indication); or iterative reconstruction.
== END ==
LOC: DI 09:22
PROVIDERS: PCP Family Medicine; Visit Provider Family Medicine
DX: M41.20 Other idiopathic scoliosis, site unspecified (principal)
CPT/HCPCS: 72128; 72131

== ENCOUNTER → 2025-09-20 10:13 | Outpatient (CLI) | payer MEDICARE, BC, SELFPAY ==
--- NOTE | 2025-09-20 10:00 | DI.CT_ITS ---
Exam(s) CT UPPER EXTREMITY LT WO EXAM: CT UPPER EXTREMITY LT WO CLINICAL HISTORY: worsening left shoulder M25.512 PAIN LEFT SHOULDER M41.20 IDIOPATHIC TECHNIQUE: Imaging Protocol: Axial computed tomography images with coronal and sagittal reformatted images were created and reviewed. CONTRAST MATERIAL: Intravenous: None COMPARISON: CR CHEST 2 VIEWS PA,LAT from 11/18/2012 CR,XR XR PORTABLE CHEST AP from 07/27/2023 CR XR CHEST 2V PA LATERAL from 02/27/2024 FINDINGS: OSSEOUS: No evidence of fracture or dislocation glenohumeral joint. There is a subtle deformity at the humeral neck which is probably a healed mildly impacted fracture site. There is also a semi lunar independent calcification measuring 2.5 cm by 0.7 cm by 0.9 cm intimately associated with the posterior aspect of the osseous glenoid above the midline and this may also be prior fracture fragment off the adjacent glenoid. There is [id number] narrowing of the glenohumeral joint with almost complete elimination the articular cartilage. There is also a thurston-type osteophyte on the inferior articular surface of the humeral head. Degenerative subarticular cysts are noted in the superior lateral aspect of the humeral head as well as a single degenerative subarticular cysts in the osseous glenoid. There is a calcified loose body in the posterior aspect of the glenohumeral joint measuring 8 x 7 x 6 mm, this at approximately the neck level. There are minimal degenerative changes in the ipsilateral AC joint. No evidence of clavicle fracture. No os acromial. SOFT TISSUES: The subacromial space is not diminished and there are no abnormal soft tissue calcifications in the mid-lateral subacromial space. There is reverse prosthesis in the opposite-right Shoulder. IMPRESSION: Advanced osteoarthritic degenerative changes in the glenohumeral joint of the left shoulder, as described above. There is a semi lunar calcification off the posterior aspect of the osseous glenoid measuring 2.5 x 0.7 x 0.9 cm which may be from prior posterior glenoid rim fracture. There is also a solitary 8 x 7 x 6 mm calcified loose body posteriorly in the joint at approximately the surgical neck level. RADIATION DOSE DELIVERED: Total DLP DATA REPOSITORY: All CT scans at this facility are submitted to the National Radiology Data Registry (NRDR) Dose Index Registry (DIR) with the [employer] (ACR). RADIATION OPTIMIZATION: All CT scans at this facility use at least one of these dose optimization techniques: automated exposure control; mA and/or kV adjustment per patient size (includes targeted exams where dose is matched to clinical indication); or iterative reconstruction.
== END ==
LOC: DI 10:14
PROVIDERS: PCP Family Medicine; Visit Provider Nurse Practitioner Family
DX: M25.512 Pain in left shoulder (principal); M41.20 Other idiopathic scoliosis, site unspecified
CPT/HCPCS: 73200